=== PATIENT | male | born 1975 | race Caucasian/White ===

== ENCOUNTER 2017-03-18 09:05 | Emergency (ER) | payer OTHER ==
[~2017-03-18] VITALS: Ht 177.8 cm; Wt 65.8 kg
[~2017-03-18 09:05] MED LIST: ACET325 PO; Butalbital-Caf1 EACH PO; CEPH500 PO; Percocet 5-3251 EACH PO; Prednisone20 MG PO; Zofran Odt4 MG SL
[2017-03-18] MEDS ORDERED: IBUP600 PO (12:03)
== END 2017-03-18 12:22 | disposition home or self-care (01) ==
LOC: ER 09:05
DX: S20.211A Contusion of right front wall of thorax, initial encounter (principal); F17.200 Nicotine dependence, unspecified, uncomplicated; Z88.6 Allergy status to analgesic agent; Z86.19 Personal history of other infectious and parasitic diseases; W50.1XXA Accidental kick by another person, initial encounter
CPT/HCPCS: 71046; 99283

== ENCOUNTER 2020-09-23 17:28 | Emergency (ER) | payer OTHER ==
[~2020-09-23] VITALS: Ht 177.8 cm; Wt 68.0 kg
[~2020-09-23 17:28] MED LIST changes: +IBUP600 PO
== END 2020-09-23 19:53 | disposition left against medical advice (07) ==
LOC: ER 17:28
DX: S61.219A Laceration without foreign body of unspecified finger without damage to nail, initial encounter (principal); Z53.21 Procedure and treatment not carried out due to patient leaving prior to being seen by health care provider; W45.8XXA Other foreign body or object entering through skin, initial encounter
CPT/HCPCS: 99282

== ENCOUNTER 2020-09-24 06:41 | Emergency (ER) | payer OTHER ==
[~2020-09-24] VITALS: Ht 177.8 cm; Wt 68.0 kg
== END 2020-09-24 07:38 | disposition home or self-care (01) ==
LOC: ER 06:41
DX: S61.211A Laceration without foreign body of left index finger without damage to nail, initial encounter (principal); F17.200 Nicotine dependence, unspecified, uncomplicated; Z88.6 Allergy status to analgesic agent; W26.1XXA Contact with sword or dagger, initial encounter
CPT/HCPCS: 73130; 99283-25

== ENCOUNTER → 2023-08-26 | Outpatient (CLI) | payer OTHER | LOC: LAB 15:44 → LAB SHORT 15:44 | DX: K40.90 Unilateral inguinal hernia, without obstruction or gangrene, not specified as recurrent (principal) | CPT/HCPCS: 87086 ==

== ENCOUNTER 2023-12-09 09:37 | Day surgery (SDC) | payer OTHER ==
[~2023-12-09] VITALS: Ht 175.3 cm; Wt 75.1 kg
[2023-12-09] VITALS (11 sets, daily range): BP systolic 119–128; BP diastolic 81–94
[~2023-12-09 09:37] MED LIST changes: +CeFAZolin Sodium 2,000 MG VIAL ONE; +CeFAZolin Sodium 2,000 MG in NS 100 ML IV SCH; +Lactated Ringer's 1,000 ML IV SCH
[2023-12-09] MEDS ORDERED: Dexamethasone Sod Phos 10 MG/ML 1ML VIAL ONE (09:44)
[2023-12-09] MEDS ORDERED: Sugammadex Sodium 200 MG/2ML SDV (100 MG/ML) ONE (09:44)
[2023-12-09] MEDS ORDERED: Ondansetron HCl 2 MG / ML 2ML Vial ONE (09:44)
[2023-12-09] MEDS ORDERED: Ketorolac Tromethamine 30mg Vial ONE (09:44)
[2023-12-09] MEDS ORDERED: propofoL 20 ML IV ONE (09:44)
[2023-12-09] MEDS ORDERED: FentaNYL Citrate 50 MCG/ML 2 ML Injection ONE (09:44)
[2023-12-09] MEDS ORDERED: Rocuronium Bromide 10 MG/ML 5ML Injection IV ONE ×3 (09:44→12:31)
[2023-12-09] MEDS ORDERED: Lidocaine HCl 1% 5 ML SYR INJ ONE (10:05)
[2023-12-09] MEDS ORDERED: Midazolam HCl 1MG / ML 2ML Vial IV PRN (10:05)
--- NOTE | 2023-12-09 10:06 | NUR ---
History, Chart, Medications and Allergies reviewed before start of procedure. Patient confirms NPO status and agrees with scheduled surgery. Patient States Post-Procedure ride home has been arranged with friend, Daniel.
[2023-12-09] MEDS ORDERED: Bupivacaine 0.5% HCl 5 MG/ML 30MLVIAL ONE (10:41)
[2023-12-09] MEDS ORDERED: Dexmedetomidine HCL 200 MCG / 2 ML ONE (11:08)
[2023-12-09] MEDS ORDERED: OxyCODONE 5 mg/Acetamin 325 mg TABLET PO PRN (13:55)
--- NOTE | 2023-12-09 14:15 | NUR ---
REPORT RECEIVED FROM VAHID WHALEN. VSS. PT ON RA. PT ABLE TO REPOSITION SELF IN BED. PT REQUESTING PO FLUIDS AND TOLERATING THEM WELL. PT DENIES PAIN, NAUSEA OR OTHER DISCOMFORTS. PT HAS 3 INCISION SITES TO ABDOMEN COVERED WITH DERMABOND THAT ARE C/D/I.
--- NOTE | 2023-12-09 14:41 | NUR ---
Patient up to Ambulate independently. Gait steady. VSS AND CONSISTENT WITH PT BASELINE. PT REPORTS PAIN TO BE TOLERABLE AND VERBALIZES READINESS TO GO HOME. Discharge instructions reviewed with patient. Patient verbalizes understanding. Copy given to patient to take home. Dressing to procedure site clean, dry, intact with no visible drainage, swelling, erythema or bruising noted. Patient States Post-Procedure ride home has been arranged. Discharged via wheelchair to private car for ride home. PT BELONGINGS RETURNED TO PT.
== END 2023-12-09 14:43 | disposition home or self-care (01) ==
LOC: ORSCMMR 09:37 → ORD 10:30 → ORSCMMR 14:43
PROVIDERS: Surgery
PROC: 3E0T3BZ Introduction of Anesthetic Agent into Peripheral Nerves and Plexi, Percutaneous Approach (ICD-10-PCS; principal; 2023-12-09 10:30)
PROC: 0YU54JZ Supplement Right Inguinal Region with Synthetic Substitute, Percutaneous Endoscopic Approach (ICD-10-PCS; principal; 2023-12-09 10:30)
PROC: 8E0W4CZ Robotic Assisted Procedure of Trunk Region, Percutaneous Endoscopic Approach (ICD-10-PCS; principal; 2023-12-09 10:30)
DX: K40.30 Unilateral inguinal hernia, with obstruction, without gangrene, not specified as recurrent (principal); K66.0 Peritoneal adhesions (postprocedural) (postinfection); Z87.891 Personal history of nicotine dependence
CPT/HCPCS: C1781; J0690; J1100; J1885; J2250; J2405; J2704; J3010; J7120